=== PATIENT | male | born 1940 | race Caucasian/White ===

== ENCOUNTER 2017-07-09 08:13 | Day surgery (SDC) | payer MEDICARE, OTHER ==
--- NOTE | 2017-07-09 07:59 | HP ---
DATE OF SURGERY: 07/09/2017 ADMISSION DIAGNOSIS: Upper abdominal pain, some difficulty swallowing, history of acid reflux. No recent exam. ANTICIPATED PROCEDURE: EGD. HISTORY OF PRESENT ILLNESS: PAST MEDICAL HISTORY: ALLERGIES: ASPIRIN. MEDICATIONS: Multiple. PAST SURGICAL HISTORY: Knee surgery. SOCIAL HISTORY: Negative. FAMILY HISTORY: Negative. REVIEW OF SYSTEMS: Orthopedic symptoms. PHYSICAL EXAMINATION: VITAL SIGNS: Normal. CHEST: Clear. COR: Regular. ABDOMEN: No palpable organomegaly or mass. IMPRESSION: Epigastric pain, some difficulty swallowing. PLAN: EGD.
[~2017-07-09 08:13] MED LIST: Lactated Ringers 1,000 ML IV SCH
[2017-07-09] MEDS ORDERED: DEMEROL 50 MG IV ONE (08:14)
[2017-07-09] MEDS ORDERED: VERSED 5 MG/5 ML IV ONE (08:14)
[2017-07-09] MEDS ORDERED: Lactated Ringers 1,000 ML IV ONE (08:32)
[2017-07-09 11:43] VITALS: O2SAT 98
[2017-07-09 11:45] VITALS: BP 147/73; PULSE 70
--- NOTE | 2017-07-09 15:19 | OP ---
SURGERY DATE/TIME: 07/09/2017 1035 PREOPERATIVE DIAGNOSIS: Upper abdominal pain, symptoms of heartburn. POSTOPERATIVE DIAGNOSIS: Moderate hiatal hernia, grade 2/3 gastroesophageal reflux disease, some gastric hypertrophy but not atypical. PROCEDURE: EGD. SURGEON: Randolph Samuels M.D. ANESTHESIA: IV sedation. COMPLICATIONS: None. CONDITION: Stable. INDICATION: A patient requiring evaluation. DESCRIPTION OF PROCEDURE: IV sedation titrated 15 minutes monitored anesthesia care. The scoped was introduced. The esophagus normal down to gastroesophageal junction. There was a rim of esophagitis grade 1. There was a moderate sized hiatal hernia. The gastric folds were slightly prominent but I did not think they were atypical. Fundus, body and antrum satisfactory. Pylorus satisfactory. Duodenal bulb normal. Second portion of duodenum normal. Ampullary area was seen and was normal. The scope is withdrawn and looped upon itself. Slightly hard to loop this and see but it was accomplished and the folds did look normal although slightly generous. There was a 2 inch hiatal hernia. There were no retained gastric contents. No retained esophageal contents. The scope is withdrawn. The patient tolerated the procedure satisfactorily. Findings of reflux and hiatal hernia were discussed with the in the waiting room.
== END 2017-07-09 11:50 | disposition home or self-care (01) ==
LOC: SDC 08:13
PROVIDERS: ATTEND Surgery
PROC: 0DJ08ZZ Inspection of Upper Intestinal Tract, Via Natural or Artificial Opening Endoscopic (ICD-10-PCS; principal; 2017-07-09)
DX: K44.9 Diaphragmatic hernia without obstruction or gangrene (principal); K21.9 Gastro-esophageal reflux disease without esophagitis
CPT/HCPCS: J2175; J2250

== ENCOUNTER 2018-11-22 10:18 | Observation (INO) | payer MEDICARE, OTHER ==
[2018-11-22] MEDS ORDERED: MORPHINE SULFATE 4 MG INJ IV ONE (10:45)
[2018-11-22] MEDS ORDERED: Sodium Chloride 0.9% 1000 ML 1,000 ML IV STA (10:45)
[2018-11-22] MEDS ORDERED: Zofran 4 MG/2 ML VIAL IV ONE (10:45)
--- NOTE | 2018-11-22 10:50 | ERPHSYRPT ---
- History of Present Illness Time Seen by Provider: 11/22/18 10:42 Historian: patient Exam Limitations: no limitations Patient Subjective Stated Complaint: Pt states "I have horrible belly pain. It started and I cannot keep anything down." Triage Nursing Assessment: Pt alert and oriented X 3, skin pwd Pt ambulates with a slow unsteady gait, able to speak in clear full sentences. PT in no apparent respiratory distress. Physician History: 78-year-old white male with history of arrhythmia, diverticulitis, Patient arrives with complaint of abdominal pain located periumbilical region aching states she's been vomiting unable to keep anything down symptoms going on for 4 days. Past medical history includes arrhythmia, diverticulitis Past surgical history includes cholecystectomy, joint replacement, knee surgery Timing/Duration: day(s) (4 days) Activities at Onset: none Quality: aching Abdominal Pain Onset Location: periumbilical Pain Radiation: no radiation Severity of Pain-Max: moderate Severity of Pain-Current: moderate Modifying Factors: Improves With: vomiting. Worsens With: analgesics, antacids , breathing, coughing, defecating, eating, exercise, lying down, movement, palpation, rest, urinating, position, walking Associated Symptoms: nausea, vomiting, No back, No chest pain, No diaphoresis, No diarrhea, No fever/chills, No fatigue, No headache, No heartburn, No loss of appetite, No neck pain, No rash, No shortness of breath, No syncope, No testicular pain Previous symptoms: other (similar symptoms with diverticulitis in past) Allergies/Adverse Reactions: aspirin Allergy (Verified 07/03/17 19:00) Hives acetaminophen [From Vicodin] Adverse Reaction (Severe, Verified 07/09/17 08:51) hydrocodone [From Vicodin] Adverse Reaction (Severe, Verified 07/09/17 08:51) Home Medications: Allopurinol 100 mg [Zyloprim 100 mg] 100 mg PO DAILY 11/22/18 [History] Ergocalciferol (Vitamin D2) [Vitamin D] 50,000 unit PO WEEKLY 11/22/18 [History] Hydrochlorothiazide 25 mg [hydroDIURIL 25 MG] 25 mg PO DAILY 11/22/18 [ History] PANTOPRAZOLE 40 mg Tablet [Protonix 40MG Tablet] 40 mg PO DAILY 11/22/18 [ History] Potassium Chloride 10 Meq Tab* [Klor Con 10 MEQ] 20 meq PO DAILY 11/22/18 [ History] Simvastatin 20 mg PO DAILY 11/22/18 [History] Torsemide 10 mg PO DAILY 11/22/18 [History] Verapamil HCl [Verapamil ER] 180 mg PO DAILY 11/22/18 [History] Hx Tetanus, Diphtheria Vaccination/Date Given: No Hx Influenza Vaccination/Date Given: Yes Hx Pneumococcal Vaccination/Date Given: No Immunizations Up to Date: Yes - Review of Systems Constitutional: No Fever, No Chills Eyes: No Symptoms Ears, Nose, & Throat: No Symptoms Respiratory: No Cough, No Dyspnea Cardiac: No Chest Pain, No Edema, No Syncope Abdominal/Gastrointestinal: Abdominal Pain, Nausea, Vomiting, No Diarrhea, No Constipation, No Hematemesis, No Hematochezia, No Melena, No Dysphagia, No Appetite Changes Genitourinary Symptoms: No Dysuria Musculoskeletal: No Back Pain, No Neck Pain Skin: No Rash Neurological: No Dizziness, No Focal Weakness, No Sensory Changes Psychological: No Symptoms Endocrine: No Symptoms All Other Systems: Reviewed and Negative - Past Medical History Pertinent Past Medical History: Yes Neurological History: No Pertinent History ENT History: No Pertinent History Cardiac History: Arrhythmia Respiratory History: No Pertinent History Endocrine Medical History: No Pertinent History Musculoskeletal History: Arthritis GI Medical History: Gallbladder Disease History: No Pertinent History Psycho-Social History: No Pertinent History Male Reproductive Disorders: No Pertinent History Other Medical History: chronic back pain - Past Surgical History Past Surgical History: Yes Neuro Surgical History: No Pertinent History Cardiac: No Pertinent History Respiratory: No Pertinent History Gastrointestinal: Cholecystectomy Genitourinary: No Pertinent History Musculoskeletal: Joint Replacement Male Surgical History: No Pertinent History Other Surgical History: Bilateral knee replacements, right carpal tunnel repair twice - Social History Smoking Status: Former smoker Exposure to second hand smoke: No Drug Use: none Patient Lives Alone: No - Nursing Vital Signs Nursing Vital Signs: Initial Vital Signs Temperature 97.6 F 11/22/18 10:31 Pulse Rate 92 H 11/22/18 10:31 Respiratory Rate 20 11/22/18 10:31 Blood Pressure 141/79 11/22/18 10:31 O2 Sat by Pulse Oximetry 99 11/22/18 10:31 Pain Scale Pain Intensity 0 - Physical Exam General Appearance: moderate distress (looking), alert Eye Exam: PERRL/EOMI, eyes nml inspection Ears, Nose, Throat Exam: normal ENT inspection, pharynx normal, moist mucous membranes Neck Exam: normal inspection, non-tender, supple, full range of motion Respiratory Exam: normal breath sounds, lungs clear, No respiratory distress Cardiovascular Exam: regular rate/rhythm, normal heart sounds, capillary refill <2 sec Gastrointestinal/Abdomen Exam: soft (is right over the kneeca), tenderness ( periumbilical tenderness), No mass Back Exam: normal inspection (not), normal range of motion, No CVA tenderness, No vertebral tenderness Extremity Exam: normal inspection, normal range of motion, pelvis stable Neurologic Exam: alert, oriented x 3, cooperative, payable representative II-XII nml as tested, normal mood/affect, nml cerebellar function, sensation nml, No motor deficits Skin Exam: normal color, warm, dry SpO2 Interpretation: normal (99%) SpO2: 99 - Course Nursing assessment & vital signs reviewed: Yes EKG Interpreted by Me: RATE (89 bpm), Sinus Rhythm, Left [place] Deviation, Other ( EKG: Sinus rhythm, 89 bpm, moderate amount of artifact,, left axis deviation, complete right bundle branch block, left anterior fascicular block. No acute ST or T wave changes.) - CT Exams Abdomen/Pelvis CT Interpretation: Discussed w/radiologist (CT abdomen and pelvis: Impression 1. Stable colonic diverticulosis with scarring. Bilateral renal cysts Enlarged prostate gland. Fatty right inguinal hernia. Calcified splenic granulomas. 2. No new or acute intra-abdominal/pelvic abnormalities on this noncontrast exam. 3. Chronic degenerative spondylosis and osteopenia.) Ordered Tests: Active Orders 24 hr Category Date Time Status Bedrest with BRP/BSC ROUTINE Activity 11/22/18 14:31 Active Call Admit Doctor for Orders ON ADMISSION Care 11/22/18 14:31 Active Code Status Order ROUTINE Care 11/22/18 14:31 Active IV Care Q6H Care 11/22/18 14:31 Active IV Insertion STAT Care 11/22/18 10:[address] in Observation ROUTINE Care 11/22/18 14:31 Active Telemetry q6h Care 11/22/18 14:31 Active Weight,Daily 0600 Care 11/22/18 14:31 Active Consult Surgery ROUTINE Cons 11/22/18 14:31 Active Clear Liquid Diet 11/22/18 Dinner Active ABDOMEN AND PELVIS W/0 CONTRAS [CT] Stat Exams 11/22/18 11:26 Completed AMYLASE Stat Lab 11/22/18 11:01 Completed CBC W DIFF AM.LAB Lab 11/23/18 04:00 Ordered CBC W DIFF Stat Lab 11/22/18 11:01 Completed CMP AM.LAB Lab 11/23/18 04:00 Ordered CMP Stat Lab 11/22/18 11:01 Completed LIPASE Stat Lab 11/22/18 11:01 Completed Manual Differential NC Stat Lab 11/22/18 11:01 Completed UA W/RFX UR CULTURE Stat Lab 11/22/18 12:03 Completed Transfer Order Routine Transfer 11/22/18 Completed Medication Summary Generic Name Dose Route Start Last Admin Trade Name Freq PRN Reason Stop Dose Admin Sodium Chloride 1,000 mls @ 100 mls/hr 11/22/18 14:31 11/22/18 15:08 Sodium Chloride 0.9% 1000 Ml IV 12/22/18 14:30 100 mls/hr .Q10H JUAN JOSE Administration Morphine Sulfate 4 mg 11/22/18 14:31 Morphine Sulfate 4 Mg Inj IV 11/27/18 14:30 Q4H PRN PRN PAIN Ondansetron HCl 4 mg 11/22/18 14:31 Zofran 4 Mg/2 Ml Vial IV 12/22/18 14:30 Q6H PRN PRN NAUSEA/VOMITING Discontinued Medications Generic Name Dose Route Start Last Admin Trade Name Freq PRN Reason Stop Dose Admin Sodium Chloride 1,000 mls @ 999 mls/hr 11/22/18 10:45 11/22/18 12:04 Sodium Chloride 0.9% 1000 Ml IV 11/22/18 11:45 Infused .Q1H1M STA Infusion Sodium Chloride Confirm 11/22/18 10:55 Sodium Chloride 0.9% 1000 Ml Administered 11/22/18 10:56 Dose 1,000 mls @ ud .ROUTE .STK-MED ONE Morphine Sulfate 4 mg 11/22/18 10:45 11/22/18 10:57 Morphine Sulfate 4 Mg Inj IV 11/22/18 10:46 4 mg STAT ONE Administration Morphine Sulfate Confirm 11/22/18 10:55 Morphine Sulfate 4 Mg Inj Administered 11/22/18 10:56 Dose 4 mg .ROUTE .STK-MED ONE Ondansetron HCl 4 mg 11/22/18 10:45 11/22/18 10:57 Zofran 4 Mg/2 Ml Vial IV 11/22/18 10:46 4 mg STAT ONE Administration Ondansetron HCl Confirm 11/22/18 10:55 Zofran 4 Mg/2 Ml Vial Administered 11/22/18 10:56 Dose 4 mg .ROUTE .STK-MED ONE Lab/Rad Data: Laboratory Result Diagrams 11/22/18 11:01 11/22/18 11:01 Laboratory Results 11/22/18 11/22/18 11/22/18 Range/Units 12:03 11:01 11:01 WBC 15.5 H (4.0-10.5) K/mm3 RBC 5.40 (4.1-5.6) M/mm3 Hgb 12.3 L (12.5-18.0) gm/dl Hct 39.6 L (42-50) % MCV 73.3 L (78-100) fl MCH 22.7 L (26-32) pg MCHC 31.1 L (32-36) g/dl RDW 18.0 H (11.5-14.0) % Plt Count 363 (150-450) K/mm3 Segmented Neutrophils 81 H (36.-66.) % Band Neutrophils 1 (0.0-2.0) % Lymphocytes (Manual) 6 L (24-44) % Monocytes (Manual) 3 (0.0-12.0) % Eosinophils (Manual) 9 H (0.00-3.0) % Platelet Estimate NORMAL (NORMAL) RBC Morphology NORMAL Sodium 132 L (137-145) mmol/L Potassium 3.6 (3.5-5.1) mmol/L Chloride 94 L (98-107) mmol/L Carbon Dioxide 25 (22-30) mmol/L Anion Gap 15.8 H (5-15) MEQ/L BUN 38 H (9-20) mg/dL Creatinine 2.68 H (0.66-1.25) mg/dL Estimated GFR 24.7 ML/MIN Glucose 99 (74-106) mg/dL Calcium 9.1 (8.4-10.2) mg/dL Total Bilirubin 0.80 (0.2-1.3) mg/dL AST 40 (17-59) U/L ALT 47 (0-50) U/L Alkaline Phosphatase 138 H (38-126) U/L Serum Total Protein 7.3 (6.3-8.2) g/dL Albumin 3.5 (3.5-5.0) g/dL Amylase 40 (30-110) U/L Lipase 153 (23-300) U/L Urine Color STRAW (YELLOW) Urine Appearance CLEAR (CLEAR) Urine pH 5.0 (5-6) Ur Specific [place] 1.008 (1.005-1.025) Urine Protein NEGATIVE (Negative) Urine Ketones NEGATIVE (NEGATIVE) Urine Blood SMALL (0-5) Daren/ul Urine Nitrite NEGATIVE (NEGATIVE) Urine Bilirubin NEGATIVE (NEGATIVE) Urine Urobilinogen NEGATIVE (0-1) mg/dL Ur Leukocyte Esterase NEGATIVE (NEGATIVE) Urine WBC (Auto) NONE (0-5) /HPF Urine RBC (Auto) NONE (0-2) /HPF Urine Mucus (Auto) SLIGHT (NEGATIVE) /HPF Urine Culture Reflexed NO (NO) Urine Glucose NEGATIVE (NEGATIVE) mg/dL - Progress Progress: improved Progress Note: 11/22/18 13:40 78-year-old white male with history of arrhythmia, gallbladder disease, arthritis, chronic back pain who also has had diverticulosis in the past and an esophageal hernia Patient arrives with complaint of periumbilical abdominal pain symptoms for 4 days he states she's been vomiting at home unable to keep anything down Patient to with tenderness in the. Umbilical region on examination vitals are stable. Patient with labs white blood cell count 15.5 hemoglobin 12.3 hematocrit 39.6 platelets 363 patient's chemistry remarkable for a sodium 132 potassium 3.6 chloride 94 bicarbonate 25 BUN 38 creatinine 2.68 glucose 99 urinalysis essentially normal patient with a CT of the abdomen which is remarkable for stable colonic diverticulosis with scarring, bilateral renal cysts, enlarged prostate gland, fatty right inguinal hernia, and calcified splenic granulomas. There are no new or acute abdominal/pelvic abnormalities on the noncontrast exam. This chronic degenerative spondylosis and osteopenia Patient is given IV normal saline 1 L is given morphine 4 mg IV and Zofran 4 mg IV. He is improved with continuing to have periumbilical pain and infraumbilical pain. patient apparently has seen Dr. Samuels in the past he has a nurse practitioner who he sees for his usual medical care located in [place]. I've discussed case with Dr. Solorzano will place patient on observation provide IV fluids morphine, Zofran and obtain a surgery consult. Impression abdominal pain, nausea and vomiting - Departure Departure Disposition: Observation Clinical Impression: Abdominal pain Qualifiers: Abdominal location: periumbilical Qualified Code(s): R10.33 - Periumbilical pain Vomiting Qualifiers: Vomiting type: unspecified Vomiting Intractability: non-intractable Nausea presence: with nausea Qualified Code(s): R11.2 - Nausea with vomiting, unspecified Condition: Fair Critical Care Time: No
[2018-11-22] MEDS ORDERED: Sodium Chloride 0.9% 1000 ML 1,000 ML ONE (10:55)
[2018-11-22] MEDS ORDERED: MORPHINE SULFATE 4 MG INJ ONE (10:55)
[2018-11-22] MEDS ORDERED: Zofran 4 MG/2 ML VIAL ONE (10:55)
[2018-11-22 11:03] LABS: Hematocrit 39.6 % (42-50); Hemoglobin 12.3 gm/dl (12.5-18.0); Mean Cell Volume 73.3 fl (78-100); Mean Corpuscular Hgb Concent. 31.1 g/dl (32-36); Platelet Count 363 K/mm3 (150-450); White Blood Count 15.5 K/mm3 (4.0-10.5)
[2018-11-22 11:05] LABS: Mean Corpuscular Hemoglobin 22.7 pg (26-32)
[2018-11-22 11:12] LABS: ALBUMIN 3.5 g/dL (3.5-5.0); ANION GAP 15.8 MEQ/L (5-15); BILIRUBIN,TOTAL 0.8 mg/dL (0.2-1.3); Calcium 9.1 mg/dL (8.4-10.2); Creatinine 1 2.68 mg/dL (0.66-1.25); Potassium 3.6 mmol/L (3.5-5.1); Total Protein 7.3 g/dL (6.3-8.2)
[2018-11-22 11:24] LABS: BAND 1 % (0.0-2.0); Eosinophil 9 % (0.00-3.0); Lymphocytes 6 % (24-44); Monocyte 3 % (0.0-12.0); Neutrophils 81 % (36.-66.); Platelet Estimate NORMAL (NORMAL); Total Cells Counted 100
[2018-11-22 12:33] LABS: Appearance CLEAR (CLEAR); Bilirubin NEGATIVE (NEGATIVE); Blood SMALL Ery/ul (0-5); Glucose NEGATIVE (NEGATIVE); Ketones NEGATIVE (NEGATIVE); Leukocyte Esterase NEGATIVE (NEGATIVE); Mucus SLIGHT /HPF (NEGATIVE); Nitrite NEGATIVE (NEGATIVE); Protein,Urine Dip NEGATIVE (Negative); Specific Gravity 1.008 (1.005-1.025); Urobilinogen NEGATIVE mg/dL (0-1)
--- NOTE | 2018-11-22 12:59 | XRAY ---
Indication: Upper abdominal pain. Vomiting. Multiple contiguous axial images obtained through the abdomen and pelvis without contrast as ordered. Comparison: September 24, 2015. Lung bases now demonstrates mild bibasilar dependent atelectasis. No infiltrate or effusion. Heart is not enlarged. Noncontrasted stomach and bowel loops appear. Normal appendix. Again scattered descending and sigmoid diverticulosis. Mid to proximal sigmoid colon again demonstrates wall thickening, probable scarring from repetitive inflammation. No free fluid/air. Stable bilateral renal cysts, enlarged prostate gland, cholecystectomy, and calcified splenic granulomas. Remaining liver, pancreas, spleen, adrenal glands, kidneys, ureters, and bladder appear unremarkable for noncontrast exam. Minimal aortoiliac calcifications without AAA. Osseous structures intact again with osteopenia and mild/moderate degenerative changes throughout the spine. Stable small fatty right inguinal hernia. Impression: 1. Stable colonic diverticulosis with scarring, bilateral renal cysts, enlarged prostate gland, fatty right inguinal hernia, and calcified splenic granulomas. 2. No new or acute intra-abdominal/pelvic abnormalities on this noncontrast exam. 3. Again chronic degenerative spondylosis and osteopenia. CT DI 23.64
[2018-11-22] MEDS ORDERED: MORPHINE SULFATE 4 MG INJ IV PRN (14:31)
[2018-11-22] MEDS ORDERED: Zofran 4 MG/2 ML VIAL IV PRN (14:31)
[2018-11-22] MEDS: Sodium Chloride 0.9% 1000 ML 1,000 ML IV SCH (15:08)
[2018-11-22] MEDS: FLAGYL 500 MG IVPB 500 MG/100 ML BAG IV SCH ×2 (16:12→23:19)
[2018-11-22] MEDS: Cipro 500 MG PO SCH (16:12)
[2018-11-22] MEDS ORDERED: TYLENOL 325 MG PO PRN (20:41)
[2018-11-23] MEDS: Sodium Chloride 0.9% 1000 ML 1,000 ML IV SCH (02:47)
[2018-11-23 06:21] LABS: Hematocrit 35.1 % (42-50); Hemoglobin 10.7 gm/dl (12.5-18.0); Mean Cell Volume 75.2 fl (78-100); Mean Corpuscular Hemoglobin 22.9 pg (26-32); Mean Corpuscular Hgb Concent. 30.5 g/dl (32-36); Mean Platelet Volume 10.3 fl (6-9.5); Platelet Count 343 K/mm3 (150-450); Red Blood Count 4.67 M/mm3 (4.1-5.6); Red Cell Distribution Width 17.2 % (11.5-14.0); White Blood Count 13.4 K/mm3 (4.0-10.5)
[2018-11-23 06:31] LABS: ALBUMIN 2.9 g/dL (3.5-5.0); ANION GAP 12.6 MEQ/L (5-15); BILIRUBIN,TOTAL 0.6 mg/dL (0.2-1.3); Calcium 8.5 mg/dL (8.4-10.2); Creatinine 1 2.31 mg/dL (0.66-1.25); Potassium 3.6 mmol/L (3.5-5.1); Total Protein 6.2 g/dL (6.3-8.2)
[2018-11-23] MEDS: FLAGYL 500 MG IVPB 500 MG/100 ML BAG IV SCH ×2 (06:43→14:25)
[2018-11-23 06:52] LABS: BAND 2 % (0.0-2.0); Eosinophil 4 % (0.00-3.0); Lymphocytes 11 % (24-44); Monocyte 9 % (0.0-12.0); Neutrophils 74 % (36.-66.); Platelet Estimate NORMAL (NORMAL); Total Cells Counted 100
[2018-11-23] MEDS: Cipro 500 MG PO SCH (08:15)
--- NOTE | 2018-11-23 08:49 | CONS ---
CONSULT DATE: 11/22/2018 This patient is seen for Dr. Randolph Samuels who was product communications manager for our group. HISTORY: A 78 year-old patient with multiple procedures by Dr. Samuels in the past, multiple endoscopies. He did a cholecystectomy on his in the past as well. The patient the past three to four days had some vague abdominal pain, some dry heaves, nausea and vomiting. He denied any bloody stools. He denied any fever. I am not sure if he felt warm or not. He came in through the emergency room. He had a CT scan. He was afebrile and vital signs stable in the emergency room. Liver function tests and lipase were okay. He had a white count of 15, hemoglobin 12.3, PLT count 363,000. He had CT scan in the emergency room that showed chronic small fat hernia in the right inguinal area. He had some diverticulosis. There is no obvious free air. No significant reaction around the diverticulosis. There is an atrophic pancreas. Otherwise no free air or obvious acute inflammatory changes, fairly unimpressive for acute findings on CT scan. PAST MEDICAL HISTORY: He has had some history of gout. He had some hypertension, hyperlipidemia. He has arthritis, dysrhythmia in the past and chronic back pain in the past. PAST SURGICAL HISTORY: Bilateral knee replacement, carpal tunnel in the past. Cholecystectomy by Dr. Samuels in the past. HOME MEDICATIONS: Allopurinol, ergocalciferol, hydrochlorothiazide, pantoprazole, potassium chloride, Simvastatin, Torsemide for dysrhythmia, Verapamil. ALLERGIES: ASPIRIN, HYDROCODONE. FAMILY HISTORY: Negative in regards to this problem. SOCIAL HISTORY: Former smoker. No alcohol abuse. REVIEW OF SYSTEMS: Hard of hearing. He denies any chest pain currently. He has vague abdominal pain and dry heaves. He tried calling the office [place] earlier and had problem with the phone tree. Twelve systems reviewed pertinent for as noted above. PHYSICAL EXAMINATION: GENERAL: No acute distress. HEENT: Sclera nonicteric. NECK: No JVD. CHEST: Equal excursion, nonlabored breathing. CVS: Regular rate and rhythm. ABDOMEN: Soft, very soft with small amount of fat in right inguinal area. He had some mild mid abdominal tenderness and no rebound, no guarding, no peritoneal signs. EXTREMITIES: No edema. NEURO: Alert, moving extremities symmetrically. No gross motor deficits noted. IMPRESSION: Very soft abdomen, some vague abdominal pain, dry heaves and history of emesis. CT scan showed some diverticulosis. There is however no obvious acute inflammatory process. No obvious free air collections. No other obvious etiology of his mid upper abdominal aches and pains. Whether he truly has some early diverticulitis, he is not showing any major changes on the CT scan. Whether he has viral syndrome, gastroenteritis or some other referred aches and pains from back issues or not is unclear. Either way no emergent surgical intervention necessary at this time. I would recommend empiric antibiotics of Cipro and Flagyl, medical management. If he continues to improve he can follow up in the office of Dr. Samuels to set up endoscopy at some point. If he fails to improve then will check with Dr. Samuels for consideration of upper endoscopy later in the past. I am not sure currently if he would tolerate a bowel prep to do a lower endoscopy at this current setting. There is no evidence of any obstruction, no evidence of any need for emergent surgery on CT scan findings. Continue empiric Cipro and Flagyl, medical management for now. If he improves he can follow up in the office with Dr. Samuels and if not check with Dr. Samuels for possible endoscopy later in the week. The patient is only agreeable to having Dr. Samuels any procedure if he eventually needs one. Again, this patient was seen for Dr. Randolph Samuels who was product communications manager for our group today.
--- NOTE | 2018-11-23 08:53 | PCM.NOTE ---
Date and Time: 11/23/18 0848 Subjective Assessment: Patient reports continued belching with drinking any liquids and is able to do this in the room. He denies any pain when swallowing. Denies nausea and wants to try crackers. He wants to go home today and to see Dr. Jodi Samuels in his clinic on . He denies constipation and states he is passing gas. - Review of Systems Constitutional: No Symptoms Eyes: No Symptoms Ears, Nose, & Throat: No Symptoms Respiratory: No Symptoms Cardiac: No Symptoms Abdominal/Gastrointestinal: Abdominal Pain, Other (belching) Genitourinary Symptoms: No Symptoms Musculoskeletal: No Symptoms Skin: No Symptoms Objective Exam General Appearance: no apparent distress, alert Neurologic Exam: alert, cooperative, normal mood/affect Skin Exam: normal color, warm, dry Respiratory Exam: normal breath sounds, lungs clear, No crackles/rales, No rhonchi, No wheezing Cardiovascular Exam: regular rate/rhythm, normal heart sounds, No murmur, No friction rub, No gallop Gastrointestinal/Abdomen Exam: soft, other (mild tenderness throughout, + belching, hyperactive bowel sounds, no rigidity), No guarding Extremity Exam: normal inspection, other (no c/c/e) OBJECTIVE DATA Vital Signs: Vital Signs - 24 hr Temp Pulse Resp BP Pulse Ox 11/23/18 07:58 74 20 93 L 11/23/18 07:23 98.5 F 72 18 111/55 97 11/23/18 04:00 99.7 F 75 21 119/73 97 11/23/18 00:00 97.3 F 72 20 116/64 93 L 11/22/18 20:00 99.7 F 83 22 113/58 94 L 11/22/18 15:20 99 11/22/18 13:50 98.4 F 83 22 144/70 96 11/22/18 13:29 80 18 109/65 94 L 11/22/18 12:47 82 18 108/66 96 11/22/18 11:57 81 105/68 98 11/22/18 11:09 93 H 108/65 96 11/22/18 10:31 97.6 F 92 H 20 141/79 99 Oxygen-Last 24 hours O2 Percentage 2 Liters = 28% O2 Percentage 2 Liters = 28% Pain Assessment - Last Documented Pain Intensity 0 Pain Scale Used [facility] Intake and Output: Intake & Output 11/21/18 11/22/18 11/23/18 11/24/18 06:59 06:59 06:59 06:59 Intake Total 3459 Output Total 850 Balance 2609 Weight 100.1 kg Lab Results: Lab Results-Last 24 Hours 11/22/18 11/22/18 11/22/18 Range/Units 11:01 11:01 12:03 WBC 15.5 H (4.0-10.5) K/mm3 RBC 5.40 (4.1-5.6) M/mm3 Hgb 12.3 L (12.5-18.0) gm/dl Hct 39.6 L (42-50) % MCV 73.3 L (78-100) fl MCH 22.7 L (26-32) pg MCHC 31.1 L (32-36) g/dl RDW 18.0 H (11.5-14.0) % Plt Count 363 (150-450) K/mm3 MPV (6-9.5) fl Segmented Neutrophils 81 H (36.-66.) % Band Neutrophils 1 (0.0-2.0) % Lymphocytes (Manual) 6 L (24-44) % Monocytes (Manual) 3 (0.0-12.0) % Eosinophils (Manual) 9 H (0.00-3.0) % Platelet Estimate NORMAL (NORMAL) RBC Morphology NORMAL Sodium 132 L (137-145) mmol/L Potassium 3.6 (3.5-5.1) mmol/L Chloride 94 L (98-107) mmol/L Carbon Dioxide 25 (22-30) mmol/L Anion Gap 15.8 H (5-15) MEQ/L BUN 38 H (9-20) mg/dL Creatinine 2.68 H (0.66-1.25) mg/dL Estimated GFR 24.7 ML/MIN Glucose 99 (74-106) mg/dL Calcium 9.1 (8.4-10.2) mg/dL Total Bilirubin 0.80 (0.2-1.3) mg/dL AST 40 (17-59) U/L ALT 47 (0-50) U/L Alkaline Phosphatase 138 H (38-126) U/L Serum Total Protein 7.3 (6.3-8.2) g/dL Albumin 3.5 (3.5-5.0) g/dL Amylase 40 (30-110) U/L Lipase 153 (23-300) U/L Urine Color STRAW (YELLOW) Urine Appearance CLEAR (CLEAR) Urine pH 5.0 (5-6) Ur Specific [place] 1.008 (1.005-1.025) Urine Protein NEGATIVE (Negative) Urine Ketones NEGATIVE (NEGATIVE) Urine Blood SMALL (0-5) Daren/ul Urine Nitrite NEGATIVE (NEGATIVE) Urine Bilirubin NEGATIVE (NEGATIVE) Urine Urobilinogen NEGATIVE (0-1) mg/dL Ur Leukocyte Esterase NEGATIVE (NEGATIVE) Urine WBC (Auto) NONE (0-5) /HPF Urine RBC (Auto) NONE (0-2) /HPF Urine Mucus (Auto) SLIGHT (NEGATIVE) /HPF Urine Culture Reflexed NO (NO) Urine Glucose NEGATIVE (NEGATIVE) mg/dL 11/23/18 11/23/18 Range/Units 05:42 05:42 WBC 13.4 H (4.0-10.5) K/mm3 RBC 4.67 (4.1-5.6) M/mm3 Hgb 10.7 L (12.5-18.0) gm/dl Hct 35.1 L (42-50) % MCV 75.2 L (78-100) fl MCH 22.9 L (26-32) pg MCHC 30.5 L (32-36) g/dl RDW 17.2 H (11.5-14.0) % Plt Count 343 (150-450) K/mm3 MPV 10.3 H (6-9.5) fl Segmented Neutrophils 74 H (36.-66.) % Band Neutrophils 2 (0.0-2.0) % Lymphocytes (Manual) 11 L (24-44) % Monocytes (Manual) 9 (0.0-12.0) % Eosinophils (Manual) 4 H (0.00-3.0) % Platelet Estimate NORMAL (NORMAL) RBC Morphology NORMAL Sodium 134 L (137-145) mmol/L Potassium 3.6 (3.5-5.1) mmol/L Chloride 97 L (98-107) mmol/L Carbon Dioxide 28 (22-30) mmol/L Anion Gap 12.6 (5-15) MEQ/L BUN 33 H (9-20) mg/dL Creatinine 2.31 H (0.66-1.25) mg/dL Estimated GFR 29.3 ML/MIN Glucose 85 (74-106) mg/dL Calcium 8.5 (8.4-10.2) mg/dL Total Bilirubin 0.60 (0.2-1.3) mg/dL AST 34 (17-59) U/L ALT 37 (0-50) U/L Alkaline Phosphatase 112 (38-126) U/L Serum Total Protein 6.2 L (6.3-8.2) g/dL Albumin 2.9 L (3.5-5.0) g/dL Amylase (30-110) U/L Lipase (23-300) U/L Urine Color (YELLOW) Urine Appearance (CLEAR) Urine pH (5-6) Ur Specific [place] (1.005-1.025) Urine Protein (Negative) Urine Ketones (NEGATIVE) Urine Blood (0-5) Daren/ul Urine Nitrite (NEGATIVE) Urine Bilirubin (NEGATIVE) Urine Urobilinogen (0-1) mg/dL Ur Leukocyte Esterase (NEGATIVE) Urine WBC (Auto) (0-5) /HPF Urine RBC (Auto) (0-2) /HPF Urine Mucus (Auto) (NEGATIVE) /HPF Urine Culture Reflexed (NO) Urine Glucose (NEGATIVE) mg/dL Radiology Exams: Radiology Procedures Category Date Time Status ABDOMEN AND PELVIS W/0 CONTRAS [CT] Stat Exams 11/22/18 11:26 Completed Assessment/Plan (1) Abdominal pain Current Visit: Yes Status: Acute Qualifiers: Abdominal location: periumbilical Qualified Code(s): R10.33 - Periumbilical pain Assessment & Plan: With elevated WBC, concerning for infection, but hard to see this on CT scan as had to be done without contrast. Continue metronidazole and ciprofloxacin. General surgeon, Dr. Zuniga, saw patient yesterday. If he can tolerate some more solid food, may be able to be discharged today on oral antibiotics to follow with his surgeon and PCP. Code(s): R10.9 - UNSPECIFIED ABDOMINAL PAIN (2) Chronic kidney disease, stage 4, severely decreased GFR Current Visit: Yes Status: Acute Assessment & Plan: Avoid NSAIDS; he follows with Dr. Valladares as an outpatient. Code(s): N18.4 - CHRONIC KIDNEY DISEASE, STAGE 4 (SEVERE) (3) GERD without esophagitis Current Visit: Yes Status: Acute Assessment & Plan: Continue ppi Code(s): K21.9 - GASTRO-ESOPHAGEAL REFLUX DISEASE WITHOUT ESOPHAGITIS (4) Gout Current Visit: Yes Status: Chronic Assessment & Plan: Continue home medication. Code(s): M10.9 - GOUT, UNSPECIFIED (5) Hypertension Current Visit: Yes Status: Acute Assessment & Plan: continue verapamil; torsemide held at this time. Code(s): I10 - ESSENTIAL (PRIMARY) HYPERTENSION
[2018-11-23] MEDS ORDERED: ZOCOR 20MG PO SCH (10:00)
[2018-11-23] MEDS ORDERED: ISOPTIN SR 180MG PO SCH (10:00)
[2018-11-23] MEDS ORDERED: Protonix 40MG Tablet PO SCH (10:00)
[2018-11-23] MEDS ORDERED: ZYLOPRIM 100 MG PO SCH (10:00)
--- NOTE | 2018-11-23 10:53 | HP ---
HISTORY OF PRESENT ILLNESS: This is a 78 year-old man without a local physician in the area. He presented to the emergency department with a history of abdominal pain. He reports it started last with no certain trigger except he did eat some roasted peanuts. He reports it aches, growls and moans. He reports dry heaves starting Thursday morning and chills yesterday with a tactile fever. He denies any diarrhea. No blood in his stool. He reports he had a normal stool this morning. He is taking Pepto-Bismol he reports and for that reason his stools seem to look black. He reports Dr. Samuels has done scopes for him in the past and he is hoping to see Dr. Samuels while he was here. REVIEW OF SYSTEMS: No chest pain. He had some belching. No dyspnea. No rashes. No lower extremity edema. PAST MEDICAL HISTORY: Hypertension, gout, hyperlipidemia, chronic kidney disease for which he sees Dr. Valladares for. He is hard of hearing. PAST SURGICAL HISTORY: Cholecystectomy. Bilateral knee replacements. Right carpal tunnel surgery. MEDICATIONS: Please see the medication reconciliation list which I reviewed. ALLERGIES: ASPIRIN, ACETAMINOPHEN, HYDROCODONE. SOCIAL HISTORY: No tobacco or alcohol use. He is and lives with his . FAMILY HISTORY: His mother is and of kidney failure when she was 92. His father is and had lung cancer. PHYSICAL EXAMINATION: VITAL SIGNS: Temperature current 98.4F, temperature max 98.4F, heart rate 83 to 92, respiratory rate 18 to 22, blood pressure 109 to 144 over 65 to 70. Oxygen saturation 94 to 99% on room air. GENERAL: The patient is lying in bed a pleasant talkative man in no acute distress. He is hard of hearing. CVS: He has a regular rate and rhythm. No murmurs, gallops or rubs. CHEST: Clear to auscultation bilaterally. No crackles or wheezes. ABDOMEN: Mildly tender. No guarding. No rigidity. Normal bowel sounds. EXTREMITIES: No clubbing, cyanosis or edema. SKIN: Warm, dry and intact. LABORATORY DATA AND TESTS: His white blood cell count was 16,500, hemoglobin 12.3, PLT count 363,000. Sodium 132, chloride 94, BUN 38, creatinine 2.6. UA was negative except for small blood. He had a noncontrasted CT of his abdomen and pelvis. Please see the radiologist report for the full dictation. There is stable colonic diverticulosis with scarring. No new or acute intra-abdominal/pelvic abnormalities on noncontrasted exam. ASSESSMENT AND PLAN: 1) ABDOMINAL PAIN CONCERN FOR ILEUS VERSUS DIVERTICULITIS: The general surgery group was consulted and Dr. Stephenson was already seeing the patient. He is on metronidazole and ciprofloxacin with morphine as needed for pain. He is on IV fluids at 100 ml/hour and has Zofran as needed for nausea. Repeat blood work ordered in the morning. He is on a clear liquid diet as well. 2) HYPERTENSION: I am going to continue his home antihypertensive. 3) CHRONIC KIDNEY DISEASE, STAGE IV: He was seeing Dr. Valladares in the past and will continue to monitor his kidney function. 4) HYPERLIPIDEMIA: Continue his home medications. 5) GOUT: Continue with home medication. 6) DEEP VENOUS THROMBOSIS PROPHYLAXIS: Will start Lovenox.
[2018-11-23 11:56] VITALS: BP 125/67; PULSE 83; O2SAT 99
--- NOTE | 2018-11-23 14:31 | PCM.DCORD ---
- Discharge Discharge Date: 11/23/18 Disposition: Home, Self-Care Condition: Good Prescriptions: New Ciprofloxacin HCl [Cipro] 250 mg PO BID #14 tablet Metronidazole 500 mg [Flagyl 500 MG] 500 mg PO QID #28 tablet Acetaminophen 325 mg [Tylenol 325 mg] 650 mg PO Q4H PRN PRN tablet PRN Reason: Pain And/Or Fever Continue Allopurinol 100 mg [Zyloprim 100 mg] 100 mg PO DAILY Verapamil HCl [Verapamil ER] 180 mg PO DAILY Simvastatin 20 mg PO DAILY PANTOPRAZOLE 40 mg Tablet [Protonix 40MG Tablet] 40 mg PO DAILY Ergocalciferol (Vitamin D2) [Vitamin D] 50,000 unit PO WEEKLY Discontinued Torsemide 10 mg PO DAILY Potassium Chloride 10 Meq Tab* [Klor Con 10 MEQ] 20 meq PO DAILY Hydrochlorothiazide 25 mg [hydroDIURIL 25 MG] 25 mg PO DAILY Instructions: Acute Abdomen (Belly Pain), Adult (DC) Additional Instructions: Follow up with your primary care provider this week. Return to the ER for worsening abdominal pain, fever >100.4, unable to keep fluids down or any other concern. Follow up with: SAMSON MUSE [ACTIVE STAFF] - 11/25/18 2:45 pm (at [facility] ) Forms: Discharge Instructions
[2018-11-25] MEDS ORDERED: VITAMIN D2 PO SCH (10:00)
== END 2018-11-23 15:00 | disposition home or self-care (01) ==
LOC: ED 10:18 → MED SURG 14:24
PROVIDERS: ADMIT Internal Medicine; ATTEND Internal Medicine
DX: R10.9 Unspecified abdominal pain (principal); I10 Essential (primary) hypertension; E78.5 Hyperlipidemia, unspecified; N18.4 Chronic kidney disease, stage 4 (severe); K57.30 Diverticulosis of large intestine without perforation or abscess without bleeding; K21.9 Gastro-esophageal reflux disease without esophagitis; M10.9 Gout, unspecified; Z79.01 Long term (current) use of anticoagulants; Z79.899 Other long term (current) drug therapy; K86.89 Other specified diseases of pancreas
CPT/HCPCS: 36000; 36415; 74176; 80053; 81001; 82150; 83690; 85025; 93268; 94760; 96360; 96374; 96375; 99285; G0378; J2270; J2405; A9270-GY